=== PATIENT | female | born 1995 | race Hispanic/Latino ===

== ENCOUNTER 2017-12-30 14:55 | Outpatient (CLI) | payer OTHER ==
--- NOTE | 2017-12-30 17:53 | ULT ---
OB ULTRASOUND: Date: 12/30/17. HISTORY: Size and dates. FINDINGS: A single live intrauterine gestation is seen with measurements corresponding to an estimated gestatio nal age of 17 weeks/1 day and JOYCE at [birth year]. The estimated weight measures 186 gm or 7 oz. measurements are as follows: BPD: 3.61 cm, 17 weeks/1 day HC: 13.79 cm, 17 weeks/1 day AC: 11.37 cm, 17 weeks/1 day FL: 2.41 cm, 17 weeks/2 days heart rate measures 157 beats/minute. CK measures 10.38 cm. Placenta is anteriorly located wit hout evidence of placenta previa. Three vessel cord, cord insertion, kidneys, bladder, stomach, four chamber heart, lateral ventr icles, cerebellum, spine, lips/nose, upper/lower extremities visualized. No definite anomalies are seen. IMPRESSION: Single, live intrauterine of 17 weeks/1 day estimated gestational age and JOYCE at [birth year]. POS: SEVEN
== END 2017-12-30 14:56 | disposition home or self-care (01) ==
LOC: NAV ULT 14:55
PROVIDERS: ATTEND Family Medicine
DX: O09.892 Supervision of other high risk pregnancies, second trimester (principal); Z3A.17 17 weeks gestation of pregnancy
CPT/HCPCS: 76805